=== PATIENT | female | born 1945 | race Caucasian/White ===

== ENCOUNTER 2017-08-31 10:00 | Inpatient (IN) | payer OTHER ==
[~2017-08-31] VITALS: Ht 170.2 cm; Wt 74.8 kg
[2017-08-31] MEDS ORDERED: GLUCOTROL10 MG PO (12:28)
[2017-08-31] MEDS ORDERED: LOSARTAN POTAS100 MG PO (12:29)
[2017-08-31] MEDS ORDERED: GLUCOPHAGE XR750 MG PO (12:29)
[2017-08-31] MEDS ORDERED: SYNTHROID75 MCG PO (12:29)
[2017-09-09] MEDS ORDERED: TRIPLE ANTIBIOT28 G1 TOP (11:27)
[2017-09-09] MEDS ORDERED: CIPRO500 MG PO (11:27)
[2017-09-09] MEDS ORDERED: NAPROXEN250 MG PO (11:27)
[2017-09-09] MEDS ORDERED: TYLENOL-CODEINE1 TA1 PO (11:27)
== END 2017-09-09 11:52 | disposition home or self-care (01) | DRG 743 ==
LOC: EDSTATUS 10:00 → ADM 10:00 → O/R 09-07 05:52 → OB/GYN 09-07 05:52
PROVIDERS: Obstetrics & Gynecology; Urology
PROC: 0USG0ZZ Reposition Vagina, Open Approach (ICD-10-PCS; 2017-09-07)
PROC: BT14ZZZ Fluoroscopy of Kidneys, Ureters and Bladder (ICD-10-PCS; 2017-09-07)
PROC: 0UT90ZZ Resection of Uterus, Open Approach (ICD-10-PCS; principal; 2017-09-07 07:00)
PROC: 0UT70ZZ Resection of Bilateral Fallopian Tubes, Open Approach (ICD-10-PCS; 2017-09-07 07:00)
DX: N80.0 Endometriosis of uterus (principal); Z15.01 Genetic susceptibility to malignant neoplasm of breast; N72 Inflammatory disease of cervix uteri; N84.0 Polyp of corpus uteri; N83.292 Other ovarian cyst, left side